=== PATIENT | female | born 1975 | race African-American/Black ===

== ENCOUNTER 2018-07-11 16:43 | Emergency (ER) | payer OTHER ==
[~2018-07-11] VITALS: Ht 175.3 cm; Wt 59.0 kg
[~2018-07-11 16:43] MED LIST: FLEXERIL PO; NORCO 5-325 TA1 EACH PO
[2018-07-11 17:03] LABS: URINE BILIRUBIN NEGATIVE (Negative); URINE BLOOD NEGATIVE (Negative); URINE CLARITY CLEAR; URINE COLOR YELLOW; URINE GLUCOSE-RANDOM* NEGATIVE (Negative); URINE KETONES NEGATIVE (Negative); URINE LEUKOCYTES-REFLEX NEGATIVE (Negative); URINE NITRITE-REFLEX NEGATIVE (Negative); URINE PROTEIN (DIPSTICK) NEGATIVE (Negative); URINE UROBILINOGEN 0.2 E.U./dl (0.2-1.0)
[2018-07-11 17:08] LABS: SSA (PROTEIN CONFIRMATORY) NEGATIVE (Negative)
[2018-07-11 17:26] LABS: ABSOLUTE NEUTROPHILS 5.1 thou/uL (1.4-8.2); EOSINOPHILS 1.9 % (0.0-3.0); HEMATOCRIT 27.2 % (37.0-47.0); HEMOGLOBIN 8.7 gm/dL (12.0-15.0); LYMPHOCYTES 21.4 % (24.0-44.0); MCH 22.1 pg (26.0-34.0); MCHC 32.1 g/dL (28.0-37.0); MCV 68.9 fL (80.0-100.0); MONOCYTES 5.1 % (1.0-8.0); PLATELET COUNT 288 thou/uL (150-400); POLYS 70.6 % (36.0-66.0); RBC 3.95 mil/uL (4.20-5.00); RDW 18.9 % (10.5-14.5); WBC 7.2 thou/uL (4.0-11.0)
[2018-07-11 17:35] LABS: CALCIUM 9.7 mg/dL (8.5-10.1); CREATININE 0.6 mg/dL (0.6-1.0); POTASSIUM 4.1 mmol/L (3.5-5.1)
[2018-07-11 17:41] LABS: ALBUMIN 3.8 g/dL (3.4-5.0); TOTAL BILIRUBIN 0.2 mg/dL (<0.1-1.0); TOTAL PROTEIN 7.5 g/dL (6.4-8.2)
[2018-07-11 17:43] LABS: ANISOCYTOSIS 2+; HYPOCHROMASIA 2+; TARGET CELLS 1+; TEARDROPS FEW
[2018-07-11 20:33] VITALS: BP 140/85
== END 2018-07-11 20:34 | disposition home or self-care (01) ==
LOC: ER 16:43
PROVIDERS: Emergency Medicine; Physician Assistant
DX: D64.9 Anemia, unspecified (principal); R10.84 Generalized abdominal pain; R11.2 Nausea with vomiting, unspecified; F17.210 Nicotine dependence, cigarettes, uncomplicated

== ENCOUNTER 2019-02-19 16:50 | Emergency (ER) | payer OTHER ==
[~2019-02-19] VITALS: Ht 165.1 cm; Wt 83.9 kg
[2019-02-19 17:08] VITALS: BP 124/42
[2019-02-19 17:39] LABS: URINE BILIRUBIN NEGATIVE (Negative); URINE BLOOD 3+ (Negative); URINE CLARITY SL CLOUDY; URINE COLOR YELLOW; URINE GLUCOSE-RANDOM* NEGATIVE (Negative); URINE KETONES NEGATIVE (Negative); URINE LEUKOCYTES-REFLEX NEGATIVE (Negative); URINE NITRITE-REFLEX NEGATIVE (Negative); URINE PROTEIN (DIPSTICK) NEGATIVE (Negative); URINE UROBILINOGEN 0.2 E.U./dl (0.2-1.0)
[2019-02-19 17:48] LABS: CASTS None Seen /LPF (None Seen); CRYSTALS None Seen /LPF (None Seen); SQUAMOUS 4-10 Moderate /LPF (0-3); URINE RBC >20 Many /HPF (0-2)
[2019-02-19 17:49] LABS: URINE WBC-REFLEX 0-5 Rare /HPF (0-5)
[2019-02-19 17:50] LABS: BACTERIA-REFLEX 1-9 Few /HPF (None Seen)
== END 2019-02-19 19:00 | disposition left against medical advice (07) ==
LOC: ER 16:50
PROVIDERS: Physician Assistant
DX: N93.9 Abnormal uterine and vaginal bleeding, unspecified (principal); F17.210 Nicotine dependence, cigarettes, uncomplicated